=== PATIENT | male | born 1950 | race Caucasian/White ===

== ENCOUNTER 2018-04-18 17:02 | Inpatient (IN) | payer MEDICARE ==
--- NOTE | 2018-04-18 19:27 | RAD ---
RADIOGRAPH CHEST 1 VIEW: 04/18/18 HISTORY: 68-year-old male with tachycardia. FINDINGS: There are no air space densities, pulmonary edema, pneumothorax, or cardiomegaly. The lateral costop hrenic angles are sharp. IMPRESSION: No acute cardiopulmonary findings. jn [] POS: JIN
[2018-04-18 19:28] LABS: #Basophils 0.1 thou/uL (0.0-0.2); #Eosinphils 0.1 thou/uL (0.0-0.7); #Lymphocytes 0.7 thou/uL (1.20-3.40); #Monocytes 1.1 thou/uL (0.11-0.59); #Neutrophils 10.1 thou/uL (1.40-6.50); %Basophils 0.5 % (0.0-1.0); %Eosinophils 0.8 % (0.0-10.0); %Lymphocytes 6.1 % (21.0-51.0); %Monocytes 9.4 % (0.0-10.0); %Neutrophils 83.2 % (42.0-75.0); Hemoglobin 14.9 g/dL (14.0-18.0); Mean Corpuscular HGB CONC 32.8 g/dL (32.0-36.0); Mean Corpuscular Hemoglobin 32.9 pg (27.0-31.0); Mean Platelet Volume 6.9 fL (7.4-10.4); Platelet Count 224 thou/uL (130-400); RBC Distribution Width 11.9 % (11.5-14.5); Red Blood Cell (RBC) Count 4.53 mill/uL (4.70-6.10); White Blood Cell (WBC) Count 12.1 thou/uL (4.8-10.8)
[2018-04-18 19:44] LABS: Bilirubin Negative (Negative); Blood, Urine Negative (Negative); Clarity CLEAR (Clear); Glucose, Urine (Dipstick) Negative (Negative); Leukocyte Negative (Negative); Nitrite Negative (Negative); Protein, Urine (Dipstick) Negative (Neg-Trace); Specific Gravity, Urine 1.016 (1.002-1.036); Urobilinogen 0.2 mg/dL (0.2-1.0)
[2018-04-18 19:47] LABS: ALT (SGPT) 21 U/L (8-55); AST (SGOT) 20 U/L (5-34); Albumin 4.4 g/dL (3.4-4.8); Alkaline Phosphatase 66 U/L (40-150); Anion Gap 17 mmol/L (10-20); BUN (Urea Nitrogen) 12 mg/dL (8.4-25.7); Bilirubin, Total 0.6 mg/dL (0.2-1.2); Calc. Creatinine Clearance 0 mL/min (70-130); Calcium 10.3 mg/dL (7.8-10.44); Carbon Dioxide 25 mmol/L (23-31); Chloride 99 mmol/L (98-107); Estimated GFR-MDRD 72; Globulin 3.5 g/dL (2.4-3.5); Glucose 90 mg/dL (80-115); Magnesium 2.2 mg/dL (1.6-2.6); Potassium 4.5 mmol/L (3.5-5.1); Protein, Total 7.9 g/dL (5.8-8.1); Sodium 136 mmol/L (136-145)
[2018-04-18] MEDS ORDERED: cefTRIAXone\\ROCEPHIN 1 GM VIAL ONE (19:58)
[2018-04-18] MEDS ORDERED: Acetaminophen 500 MG TAB ONE (19:58)
[2018-04-18] MEDS ORDERED: methylPREDNISolone Sod Succ/PF 125 MG/2 ML VIAL ONE (19:59)
[2018-04-19] MEDS ORDERED: Sodium Chloride 0.45% 1,000 ML IV SCH (01:34)
[2018-04-19 01:46] VITALS: BMI 26.5
[2018-04-19 04:36] LABS: Lactic Acid 1.4 mmol/L (0.5-2.2)
[2018-04-19] MEDS ORDERED: hydrALAZINE 20 MG/ML VIAL SLOW IVP PRN (05:42)
[2018-04-19] MEDS ORDERED: Acetaminophen 500 MG TAB PO PRN (05:42)
[2018-04-19] MEDS ORDERED: Ondansetron ODT 4 MG TAB PO PRN (05:42)
[2018-04-19] MEDS ORDERED: Benzonatate 100 MG CAP PO PRN (05:42)
[2018-04-19] MEDS ORDERED: Ondansetron PF 4 MG/2 ML Vial IVP PRN (05:42)
[2018-04-19] MEDS: methylPREDNISolone Sod Succ 40 MG VIAL IVP SCH ×4 (06:23→23:05)
--- NOTE | 2018-04-19 06:30 | HP ---
PRIMARY CARE PROVIDER: Kenroy Davila DO COMPLAINT: Shortness of breath and cough. HISTORY OF PRESENT ILLNESS: This is a 68-year-old male, who presented to [facility] complaining of productive cough with yellow sputum with associated wheezing and shortness of breath over the last 1-1/2 weeks. The patient was apparently referred to the emergency department by his primary care provider's office when he presented to the PCP's office and was noted with hypoxia on a pulse oximeter in the 80% range. The patient states he has had increasing shortness of breath, decreased exercise and activity tolerance over the last 1-1/2 weeks. The patient noted some pink-tinged sputum on the day of presentation. The patient denied any recent travel history, family members with similar symptoms or recent vaccinations. In the emergency room, the patient underwent general evaluation, receiving IV vancomycin, Rocephin, acetaminophen, Solu-Medrol, and intravenous normal saline. The patient's chest imaging was unremarkable. However, the patient improved with bronchodilator therapy and IV Solu-Medrol. PAST MEDICAL HISTORY: 1. Acute bronchitis in January 2018. 2. Depression. 3. Psoriasis, on chronic prednisone and Humira. PAST SURGICAL HISTORY: Reviewed and negative. CURRENT MEDICATIONS: 1. Sudafed 60 mg p.o. daily. 2. Humira. 3. Latanoprost 0.005% ophthalmic drops to both eyes daily. 4. Augmentin 875 mg p.o. b.i.d. 5. Prednisone 40 mg p.o. daily. 6. Albuterol sulfate 90 mcg 2 puffs inhaled q.6 hours p.r.n. 7. Mucinex 600 mg p.o. b.i.d. 8. Paroxetine 20 mg p.o. daily. ALLERGIES: NO KNOWN DRUG ALLERGIES. FAMILY HISTORY: No inheritable diseases per patient report. SOCIAL HISTORY: The patient resides in [place], [place]. Retired. No current tobacco use. Quit smoking in 1999, 40+ pack-year history. Alcohol use, 6-7 times per week. Admits to marijuana use. REVIEW OF SYSTEMS: CONSTITUTIONAL: Negative for weight loss or gain, ability to conduct usual activities. SKIN: Negative for rash, itching. EYES: Negative for double vision, pain. ENT/MOUTH: Negative for nose bleeding, neck stiffness, pain, tenderness. CARDIOVASCULAR: Negative for palpitations, dyspnea on exertion, orthopnea. RESPIRATORY: Negative for shortness of breath, wheezing, cough, hemoptysis, fever or night sweats. GASTROINTESTINAL: Negative for poor appetite, abdominal pain, heartburn, nausea, vomiting, constipation, or diarrhea. GENITOURINARY: Negative for urgency, frequency, dysuria, nocturia. MUSCULOSKELETAL: Negative for pain, swelling. NEUROLOGIC/PSYCHIATRIC: Negative for anxiety, depression. ALLERGY/IMMUNOLOGIC: Negative for skin rash, bleeding tendency. Otherwise, negative except as stated per HPI. PHYSICAL EXAMINATION: VITAL SIGNS: Currently, blood pressure 147/87, pulse 90, respiratory rate 18, temperature 98.2 degrees Fahrenheit, O2 saturation 98% on 4 L/minute by nasal cannula. GENERAL APPEARANCE: This is a 68-year-old male, alert and oriented x3, pleasant, conversant, in no acute distress. HEENT: Pupils are equal, round, reactive to light and accommodation. Extraocular muscles are intact. No scleral icterus. No conjunctival injection. Nares are patent. OP is clear. Teeth are in fair repair. NECK: Supple. No cervical adenopathy. No thyromegaly. No carotid bruits. No JVD appreciated. Cervical spine with full active and passive range of motion. No meningeal signs noted. CHEST: Lungs are clear to auscultation bilaterally. CARDIOVASCULAR: S1 and S2 without noted murmur, rub, or gallop. ABDOMEN: Rounded, soft, nontender, and nondistended. Bowel sounds are positive in all 4 quadrants. There is no hepatosplenomegaly. No abdominal bruits. No rebound or guarding appreciated. EXTREMITIES: Warm and dry with fair turgor. No clubbing, cyanosis, or asymmetric edema appreciated. Pulses are palpable distally at the dorsalis pedis, posterior tibial, and popliteal arteries bilaterally. Capillary refill is less than 2 seconds. NEUROLOGIC: Cranial nerves 2 through 12 are grossly intact. No focal or lateralizing signs appreciated. PERTINENT LAB AND X-RAY FINDINGS: Complete metabolic profile within normal limits. BNP 16.9. Lactic acid level ranged between 1.3 to 2.2. CBC showed a white blood cell count 12.1, hemoglobin 15, hematocrit 45, MCV 100, platelet count 224 with 83% neutrophils. Urinalysis, positive for ketones. Influenza A and B antigen dated 04/18/2018, negative. Portable chest x-ray dated 04/18/2018, by my review shows no acute cardiopulmonary process. EKG dated 04/18/2018, by my interpretation shows sinus tachycardia with heart rates in the 110s. Normal R-wave progression noted in the precordial leads. Left axis deviation. No acute ST-T wave changes appreciated. ASSESSMENT/PLAN: 1. Acute hypoxic respiratory failure. Suspect secondary to #2. We will continue oxygen supplementation to maintain O2 saturations greater than or equal to 90%. Consider home regimen of bronchodilator therapy on discharge. 2. Acute chronic obstructive pulmonary disease exacerbation. Suspected given the patient's long-standing smoking history despite quitting approximately 20 years ago. Continue Solu-Medrol 40 mg IV q.6 hours with additional DuoNeb q.4 hours. Add Levaquin 750 mg IV q.24 hours. 3. Leukocytosis. Suspect secondary to chronic prednisone therapy. Repeat CBC in the a.m. 4. Chronic immunosuppressive therapy. We will continue Solu-Medrol 40 mg IV q.6 hours. We will resume home regimen of Humira after discharge. 5. Depression. Continue paroxetine 20 mg p.o. daily. 6. Prophylaxis. SCDs while in bed. Pepcid 20 mg p.o. b.i.d. 7. Code status is full. Surrogate medical decision maker is the patient's brother. Job ID: [id number]
[2018-04-19 06:52] LABS: Anion Gap 13 mmol/L (10-20); BUN (Urea Nitrogen) 12 mg/dL (8.4-25.7); Calc. Creatinine Clearance 90 mL/min (70-130); Calcium 9.4 mg/dL (7.8-10.44); Carbon Dioxide 24 mmol/L (23-31); Chloride 102 mmol/L (98-107); Estimated GFR-MDRD 81; Glucose 164 mg/dL (80-115); Potassium 3.7 mmol/L (3.5-5.1); Sodium 135 mmol/L (136-145)
[2018-04-19 07:15] LABS: Hemoglobin 14.9 g/dL (14.0-18.0); Mean Corpuscular HGB CONC 33.7 g/dL (32.0-36.0); Mean Corpuscular Hemoglobin 34.6 pg (27.0-31.0); RBC Distribution Width 11.8 % (11.5-14.5); Red Blood Cell (RBC) Count 4.29 mill/uL (4.70-6.10)
[2018-04-19 07:21] LABS: Band 10 % (5-11); Eosinophils 1 % (0-10); MDiff Complete? YES; Mean Platelet Volume 6.8 fL (7.4-10.4); Monocytes 4 % (0-10); Neutrophil 84 % (42-75); Platelet Count 232 thou/uL (130-400); Platelet Morphology Comment Appears Adequate; Reactive Lymphocytes 1 % (0-10); White Blood Cell (WBC) Count 17.7 thou/uL (4.8-10.8)
[2018-04-19] MEDS: Famotidine 20 MG TAB PO SCH ×2 (08:39→20:16)
[2018-04-19] MEDS: Pseudoephedrine HCl 30 MG TAB PO SCH (08:39)
[2018-04-19] MEDS: Latanoprost 0.005% Ophth Soln 2.5 ml Bottle EA EYE SCH (08:40)
[2018-04-19] MEDS: PARoxetine 20 MG TAB PO SCH (08:40)
[2018-04-19] MEDS ORDERED: Amoxicillin/Potassium Clav 875 MG TAB PO SCH (09:00)
--- NOTE | 2018-04-19 16:09 | PDOC.PN ---
- Subjective Encounter Start Date: 04/19/18 Encounter Start Time: 11:30 Mr. Canales was seen today in follow-up of COPD exacerbation. He says he feels much better today. He is coughing up some brownish/yellow sputum, no blood. - Objective Resuscitation Status - Order Detail: 04/19/18 05:34 Resuscitation Status Routine Resuscitation Status: FULL: Full Resuscitation MAR Reviewed: Yes Vital Signs & Weight: Vital Signs (12 hours) Temp Pulse Resp BP Pulse Ox 04/19/18 15:45 98.6 F 100 16 156/72 H 95 04/19/18 11:05 98.1 F 101 H 17 136/73 97 04/19/18 07:10 98.0 F 88 16 139/70 97 Weight Weight 185 lb 1.6 oz Result Diagrams: 04/19/18 05:51 04/19/18 05:51 Phys Exam - Physical Examination HEENT: PERRLA Respiratory: no rales, no rhonchi + scattered faint wheezing Cardiovascular: RRR, no significant murmur, no rub Gastrointestinal: soft, non-tender, no distention, positive bowel sounds Musculoskeletal: no edema, pulses present Dx/Plan (1) Acute respiratory failure with hypoxia Code(s): J96.01 - ACUTE RESPIRATORY FAILURE WITH HYPOXIA Status: Acute (2) COPD exacerbation Code(s): J44.1 - CHRONIC OBSTRUCTIVE PULMONARY DISEASE W (ACUTE) EXACERBATION Status: Acute (3) Psoriasis Code(s): L40.9 - PSORIASIS, UNSPECIFIED Status: Acute - Plan * COPD exacerbation- he has a history of heavy tobacco abuse years ago- he has probable COPD- continue Levaquin, Steroids, and Duonebs * Psoriasis - stable.
[2018-04-20] MEDS: methylPREDNISolone Sod Succ 40 MG VIAL IVP SCH ×2 (06:14→11:45)
[2018-04-20] MEDS: Latanoprost 0.005% Ophth Soln 2.5 ml Bottle EA EYE SCH (09:00)
[2018-04-20] MEDS: PARoxetine 20 MG TAB PO SCH (09:00)
[2018-04-20] MEDS: Famotidine 20 MG TAB PO SCH (09:00)
[2018-04-20] MEDS: Pseudoephedrine HCl 30 MG TAB PO SCH (09:00)
[2018-04-20 11:33] VITALS: BP 130/75; TEMP 98.6
--- NOTE | 2018-04-20 12:15 | PDOC.PN ---
- Subjective Encounter Start Date: 04/20/18 Encounter Start Time: 12:13 Mr. Canales was seen today in follow-up of COPD exacerbation. He is breathing better. He is still coughing up some phlem which is yellowish in color. - Objective Resuscitation Status - Order Detail: 04/19/18 05:34 Resuscitation Status Routine Resuscitation Status: FULL: Full Resuscitation MAR Reviewed: Yes Vital Signs & Weight: Vital Signs (12 hours) Temp Pulse Resp BP Pulse Ox 04/20/18 11:30 98.6 F 108 H 18 130/75 97 04/20/18 09:00 96 04/20/18 07:28 97.9 F 88 17 116/61 96 04/20/18 03:22 98.6 F 94 18 136/79 95 Weight Weight 183 lb 12.8 oz I&O: 04/19/18 04/20/18 04/21/18 05:59 06:59 06:59 Intake Total 400 Output Total 1525 Balance -1125 Result Diagrams: 04/19/18 05:51 04/19/18 05:51 Phys Exam - Physical Examination HEENT: PERRLA Respiratory: no rales, no rhonchi, wheezing present + occasional wheeze Cardiovascular: RRR, no significant murmur, no rub Gastrointestinal: soft, non-tender, no distention, positive bowel sounds Musculoskeletal: no edema Dx/Plan (1) Acute respiratory failure with hypoxia Code(s): J96.01 - ACUTE RESPIRATORY FAILURE WITH HYPOXIA Status: Acute (2) COPD exacerbation Code(s): J44.1 - CHRONIC OBSTRUCTIVE PULMONARY DISEASE W (ACUTE) EXACERBATION Status: Acute (3) Psoriasis Code(s): L40.9 - PSORIASIS, UNSPECIFIED Status: Acute - Plan * Acute respiratory failure- improved. He has been weaned off of oxygen * He can be discharged home with continued outpatient care.
--- NOTE | 2018-04-21 00:58 | DIS ---
DATE OF ADMISSION: 04/19/2018 DATE OF DISCHARGE: 04/20/2018 PRIMARY CARE PHYSICIAN: Kenroy Davila DO DISCHARGE DISPOSITION: Home. DISCHARGE DIAGNOSES: 1. Acute on chronic respiratory failure with hypoxemia. 2. Probable chronic obstructive pulmonary disease exacerbation. 3. Psoriasis. 4. History of depression. DISCHARGE MEDICATIONS: Include: 1. Levaquin 500 mg p.o. daily for 4 days. 2. Prednisone 10 mg daily for 4 days. 3. Symbicort inhaler 80/4.5 twice a day. 4. Albuterol inhaler q.i.d. as needed. 5. Paroxetine 20 mg daily. 6. Xalatan 0.005% in each eye daily. CODE STATUS: Full code. ALLERGIES: NO KNOWN DRUG ALLERGIES. HOSPITAL COURSE: Mr. Canales is a pleasant 68-year-old gentleman, who was admitted after experiencing shortness of breath, cough, and congestion. He was also noted to be hypoxic as well. He has a history of smoking in the past, fairly heavy smoking history. He was treated for presumed COPD exacerbation with antibiotics, DuoNeb, and steroids. He improved dramatically over the course of the next 24 to 48 hours, was able to be weaned off supplemental oxygen, and is now being discharged home. He is to follow up with his primary care physician in approximately 1 week and also recommending outpatient pulmonary function test. Job ID: [id number]
== END 2018-04-20 13:08 | disposition home or self-care (01) | DRG 189 ==
LOC: ERS 17:02 → 2NO 04-19 00:45
PROVIDERS: ADMIT Internal Medicine; ATTEND Internal Medicine
DX: J96.01 Acute respiratory failure with hypoxia (principal); J44.1 Chronic obstructive pulmonary disease with (acute) exacerbation; L40.9 Psoriasis, unspecified; F32.9 Major depressive disorder, single episode, unspecified
CPT/HCPCS: 36415; 71045; 80048; 80053; 81003; 83605; 83735; 83880; 84484; 85007; 85025; 85027; 87040; 87086; 87804; 93005; 96361; 96365; 96367; 96375; J0696; J1956; J2920; J2930; J3370

== ENCOUNTER 2020-05-10 12:40 | Outpatient (CLI) | payer MEDICARE | END 2020-05-10 12:41 | disposition home or self-care (01) | LOC: BICRAD 12:40 | PROVIDERS: ATTEND Internal Medicine Rheumatology | DX: M54.5 Low back pain (principal); R20.0 Anesthesia of skin; M41.9 Scoliosis, unspecified; M47.816 Spondylosis without myelopathy or radiculopathy, lumbar region | CPT/HCPCS: 72100 ==

== ENCOUNTER 2022-04-20 10:53 | Outpatient (CLI) | payer MEDICARE | END 2022-04-20 10:54 | disposition home or self-care (01) | LOC: BICRAD 10:53 | PROVIDERS: ATTEND Family Medicine | DX: M25.551 Pain in right hip (principal); M25.552 Pain in left hip; M47.816 Spondylosis without myelopathy or radiculopathy, lumbar region; M16.12 Unilateral primary osteoarthritis, left hip | CPT/HCPCS: 72100 ==

== ENCOUNTER 2024-01-22 08:02 | Outpatient (CLI) | payer MEDICARE, MEDICAID | END 2024-01-22 08:03 | disposition home or self-care (01) | LOC: ULT 08:02 | PROVIDERS: ATTEND Family Medicine | DX: R74.8 Abnormal levels of other serum enzymes (principal); K76.0 Fatty (change of) liver, not elsewhere classified | CPT/HCPCS: 76700 ==